=== PATIENT | female | born 1965 | race Two or more races ===

== ENCOUNTER 2024-05-21 21:31 | Emergency (ER) | payer MEDICAID, SELFPAY ==
[2024-05-21 21:32] VITALS: BMI 29.2
--- NOTE | 2024-05-21 21:40 | EKG_ITS ---
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
[2024-05-21 21:50] VITALS: BP 118/78; PULSE 74; RESP 16; TEMP 36.9; O2SAT 95
--- NOTE | 2024-05-21 22:31 | EDNOTE_ITS ---
<Statement entered by Mirta Granados MD - 05/21/24 23:40> As co-signing physician, I was present and available for consult prn. I concur with the plan and care as documented by the midlevel provider. ED Anxiety RME/HPI General Chief Complaint: Anxiety Stated Complaint: Headache, Chest Pressure, anxiety Time Seen by Provider: 05/21/24 22:08 Arrival date/time: 05/21/24 21:31 59F with history of asthma, HTN, DM and migraines presents to ED with WOODWARD, chest pressure, and anxiety after she had an argument with family members. Patient also notes she's had intermittent WOODWARD for the past 2 weeks. Limitations: no limitations Related Data Home Medications ?Medication ?Instructions ?Recorded ?Confirmed DM MEDS ##0 02/19/17 lisinopril 20 mg tablet 20 mg PO QDAY #0 tabs Previous Rx's ?Medication ?Instructions ?Recorded Aspirin/Acetaminophen/Caffeine 1 - 2 tab PO Q6HR PRN H EADACHE #40 02/25/17 MIGRAINE * (EXCEDRIN MIGRAINE *) tabs Allergies Allergy/AdvReac Type Severity Reaction Status Date / Time No Known Allergies Allergy Unknown Uncoded 03/02/16 01:22 Review of Systems Review of Systems Systems Reviewed: All systems reviewed, normal except as documented Constitutional Constitutional: Reports system reviewed and no additional complaints, except as documented, Reports as per HPI, Denies fever(s) and Reports headache(s) ENT Ears, Nose, Mouth, and Throat: Denies disequilibrium and Reports headache(s) Cardiovascular Cardiovascular: Reports system reviewed and no additional complaints, except as documented, Reports as per HPI, Reports chest pain and Denies dyspnea Respiratory Respiratory: Reports system reviewed and no additional complaints, except as documented, Denies cough and Denies dyspnea Gastrointestinal Gastrointestinal: Reports system reviewed and no additional complaints, except as documented, Denies abdominal pain, Denies nausea and Denies vomiting Neurologic Neurologic: Reports system reviewed and no additional complaints, except as documented, Denies confusion, Denies disequilibrium and Reports headache(s) Psychiatric Psychiatric: Reports as per HPI, Reports anxiety and Denies confusion Past Medical History Past Medical History CARDIAC: Negative Congestive Heart Failure RESPIRATORY: Positive Asthma; Negative Chronic Obstructive Pulmonary Disease (COPD) GENITOURINARY: Negative Renal Disease ENDOCRINE: Positive Diabetes Mellitus Type 2; Negative Diabetes Mellitus Type 1 Social History SMOKING STATUS: Never smoker ED Exam General Limitations: Present no limitations General appearance: Present alert, in no apparent distress and anxious Head Head exam: Present atraumatic Eye Eye exam: Present normal appearance, PERRL and EOMI ENT ENT exam: Present normal exam, normal oropharynx and mucous membranes moist Neck Neck exam: Present normal inspection, full ROM and trachea midline Chest Chest inspection: Present normal inspection and symmetric chest wall rise Respiratory Respiratory exam: Present normal lung sounds bilaterally Cardiovascular Cardiovascular exam: Present regular rate, normal rhythm and normal heart sounds Abdominal Exam Abdominal exam: Present soft and normal bowel sounds Extremities Exam Extremities exam: Present normal inspection and full ROM Back Exam Back exam: Present normal inspection and full ROM Neurological Exam Neurological exam: Present alert, oriented X3 and CN II-XII intact Psychiatric Psychiatric exam: Present normal affect and normal mood Skin Skin exam: Present warm, dry, intact and normal color Course Quality Measures none Orders Category Date Time Status EKG (ED ONLY) *Do not use* NOW Care 05/21/24 21:40 Completed EKG (ED Only) Stat Exams 05/21/24 21:40 Draft Diazepam [Valium] Med 05/21/24 22:08 Discontinued 5 mg PO X1 ONE Vital Signs Vital signs: Vital Signs Temperature 98.4 F 05/21/24 21:50 Pulse Rate 74 05/21/24 21:50 Respiratory Rate 16 05/21/24 21:50 Blood Pressure 118/78 05/21/24 21:50 Pulse Oximetry (%) 95 05/21/24 21:50 Oxygen Delivery Method Room Air 05/21/24 21:50 Anxiety MDM Narrative MDM Narrative: 59F with history of asthma, HTN, DM and migraines presents to ED with WOODWARD, chest pressure, and anxiety after she had an argument with family members. Patient also notes she's had intermittent WOODWARD for the past 2 weeks. Physical exam reveals normal pupil response and EOM. Clear lungs. RRR. CN II-XII grossly intact. Patient is afebrile, alert, but anxious. EKG is NSR. Likely anxiety. Valium relieved symptoms. Patient data External records reviewed:: [facility] previous records Clinical information provided by:: patient Social determinants that could affect healthcare access:: none Patient has the following chronic illnesses:: asthma, HTN, DM and migraines How is presenting disease/condition affected by chronic disease/condition?: un effected by Evaluation data The following diagnostics were reviewed and interpreted by me:: EKG tracing(s) Lab and/or radiology exams considered but not ordered:: ordered Interpretation Summary: above Medications / Prescriptions Medications or Prescriptions considered but not ordered:: ordered Medication administrations:: Medication Administration History Discontinued Medications Diazepam (Diazepam 5 Mg Tablet) 5 mg PO X1 ONE Stop: 05/21/24 22:09 Consultations Consultation(s) initiated? (list below): No Diagnosis Differential diagnosis anxiety: hyperventilation, panic disorder, acute anxiety and other (ACS, PE, TIA/CVA, brain bleed) Most likely diagnosis given after review of the tests above:: anxiety to stress reaction Admission Indicated Admission indicated?: not indicated Admission Request Was there a request for admission?: No Disposition Plan Disposition Plan: Discharge Discharge Attestation Discharge Attestation: The patient and all family members were given an opportunity to ask questions and understood the discharge instructions. Discharge instructions specifically effects, indications for sooner follow up or return to the emergency department, and the expected course of current diagnosis. Patient condition: Stable Discharge Plan Plan Patient Disposition: HOME (Self Care) Disposition Comment: Stable Prescriptions/Referrals Prescriptions/Med Rec: No Action lisinopril 20 MG tablet 20 mg PO QDAY Qty: 0 DM MEDS Qty: 0 Aspirin/Acetaminophen/Caffeine MIGRAINE * (EXCEDRIN MIGRAINE *) 1 TAB tablet 1 - 2 tab PO Q6HR PRN (Reason: HEADACHE) Qty: 40 0RF Problem List Clinical Impression: Anxiety in acute stress reaction Patient/Caregiver Discharge Instructions Education Materials: Your Body's Response to Anxiety Additional Instructions: Please follow-up with PCP within 24-48 hours and return immediately if symptoms worsen. Print Language: Vietnamese Stand Alone Forms: Patient Portal Info Letter PA/ARTIE Supervising Physician SUSI/ARTIE Supervising Physician: Dr. Granados
[2024-05-21] MEDS: DIAZEPAM 5 MG TABLET PO (22:38)
[2024-05-21 23:32] VITALS: BP 146/87; PULSE 79; RESP 18; TEMP 36.6; O2SAT 97
== END 2024-05-21 23:48 | disposition home or self-care (01) ==
LOC: SERX 23:48
PROVIDERS: Emergency Provider Emergency Medicine
DX: F41.1 Generalized anxiety disorder (principal); F43.0 Acute stress reaction; G43.909 Migraine, unspecified, not intractable, without status migrainosus; I10 Essential (primary) hypertension; E11.9 Type 2 diabetes mellitus without complications; J45.909 Unspecified asthma, uncomplicated
CPT/HCPCS: 93005; 99283; A9270